=== PATIENT | female | born 1975 | race Caucasian/White ===

== ENCOUNTER 2024-01-23 22:18 | Emergency (ER) | payer OTHER ==
[~2024-01-23] VITALS: Ht 157.5 cm; Wt 99.8 kg
[2024-01-23 22:28] VITALS: TEMP 97.9
[2024-01-23] MEDS ORDERED: predniSONE 20 MG TABLET ONE (22:41)
[2024-01-23] MEDS ORDERED: FAMOTIDINE (20 MG) 20 MG TABLET ONE (22:42)
[2024-01-23] MEDS: predniSONE 50 MG TABLET PO ONE (22:45)
[2024-01-23] MEDS: FAMOTIDINE (20 MG) 20 MG TABLET PO ONE (22:45)
[2024-01-23] MEDS ORDERED: PRED50TA PO (23:26)
[2024-01-24 04:06] VITALS: BP 119/84; O2SAT 98
== END 2024-01-23 23:42 | disposition home or self-care (01) ==
LOC: ER 22:18
DX: R21 Rash and other nonspecific skin eruption (principal); R22.42 Localized swelling, mass and lump, left lower limb; Z88.0 Allergy status to penicillin
CPT/HCPCS: 99284; 93971; J7512